=== PATIENT | male | born 2000 | race Caucasian/White ===

== ENCOUNTER 2020-12-09 15:31 | Outpatient (CLI) | payer BC, SELFPAY | END 2020-12-09 15:32 | disposition home or self-care (01) | LOC: ANHCOVIDVC 15:31 | PROVIDERS: PCP Pediatrics | DX: Z23 Encounter for immunization (principal) | CPT/HCPCS: 0001A; 91300 ==

== ENCOUNTER 2020-12-30 15:32 | Outpatient (CLI) | payer OTHER, BC, SELFPAY | END 2020-12-30 15:33 | disposition home or self-care (01) | LOC: ANHCOVIDVC 15:32 | PROVIDERS: PCP Pediatrics | DX: Z23 Encounter for immunization (principal) | CPT/HCPCS: 0002A; 91300 ==

== ENCOUNTER 2021-07-07 12:51 | Outpatient (CLI) | payer BC, SELFPAY ==
--- NOTE | ~2021-07-07 | US_ITS ---
EXAMINATION: US abdomen limited DATE: 07/07/2021 13:58 INDICATION: Abnormal serum enzymes TECHNIQUE: Multiple grayscale and Doppler ultrasound images of the abdomen were obtained. COMPARISON: None available FINDINGS: The head, body, and tail of the pancreas are normal. The liver is normal with normal echoge nicity and echotexture. No surface nodularity. Normal hepatopetal flow in the main portal vein. The g allbladder is normal with no abnormal wall thickening, pericholecystic fluid or stones. The normal co mmon bile duct measures 3 mm. There was no sonographic Mclean sign. IMPRESSION: 1. Normal sonographic study of the gallbladder. Reviewed, dictated and finalized at location A.
== END 2021-07-07 12:52 | disposition home or self-care (01) ==
PROVIDERS: PCP Physician Assistant; Visit Provider Physician Assistant
DX: R74.8 Abnormal levels of other serum enzymes (principal)
CPT/HCPCS: 76705

== ENCOUNTER 2023-09-14 08:44 | Emergency (ER) | payer OTHER, SELFPAY ==
--- NOTE | 2023-09-14 08:51 | ED.URI ---
HPI - URI/Sore Throat General Chief Complaint: Upper Respiratory Infection Stated Complaint: Cough/Fever/Chills Time Seen by Provider: 09/14/23 08:52 Source: patient Mode of arrival: ambulatory Limitations: no limitations History of Present Illness HPI Narrative: Rishi is a 23-year-old male patient presenting to the clinic today with complaints of fever, chills, nasal congestion, body aches, and cough x2 days. He reports his temperature is been as high as 102. No known exposure to anyone with COVID, flu, or strep. He denies any shortness of breath or chest pain. MD elicited complaint: fever, cough, nasal congestion and other (Chills, body aches) Related Data Allergies Allergy/AdvReac Type Severity Reaction Status Date / Time No Known Allergies Allergy Mild Verified 09/14/23 08:46 Review of Systems Review of Systems: Pertinent positives per HPI. Patient denies any rash, headache, visual changes, dizziness, shortness of breath, chest pain, palpitations, nausea, vomiting, diarrhea, constipation, abdominal pain, or any urinary issues. PMFSH Past Medical History Medical History Allergies Anxiety Asthma Family History Family History Father Asthma Diabetes mellitus Hypertension Depression Anxiety Heart disease Mother Breast cancer Anxiety Depression Sibling Hypertension Depression Anxiety Grandparent Breast cancer Bladder cancer Diabetes mellitus Hypertension Heart disease Grandparent Asthma Lung cancer Diabetes mellitus Hypertension Heart disease Cerebrovascular accident Social History Social History Smoking status: Never smoker Alcohol intake: unknown Substance use: unknown Current Housing: Decline to Answer Concerned About Future Housing: Decline to Answer Difficulty Paying Gas/Electric Bills: Decline to Answer Difficulty Paying for Meds: Decline to Answer Currently Unemployed: Decline to Answer Education: Decline to Answer Difficulty w/ Childcare or Family Care: Decline to Answer Comments At the time of my signature, I reviewed and agree with the nursing past medical, surgical, social, and family history. There is no relevant family history pertinent to the patient complaint. Exam Narrative: General: Well-developed, well nourished, in no apparent distress Head: Normocephalic, atraumatic Eyes: Pupils equally round and reactive to light bilaterally, EOM intact, sclera and conjunctive clear, no discharge, lids normal Ears: TMs intact and clear, ear canals clear, no drainage, grossly hearing normal. Nose: Nares patent, clear nasal discharge, no inflammation, no sinus tenderness. Mouth: Oral pharynx without lesions or masses, good dentition, MMM. Neck: Supple, trachea midline, no enlargement of anterior or posterior cervical nodes, no thyroid masses or goiter palpable. Cardio: Regular rate and rhythm, s1 and s2 normal, no murmur appreciated. Resp: Clear to auscultation bilaterally, no rhonchi, rales, wheezing or rubs Course Course Emergency Course: Portions of this record may have been created with voice recognition software. Level of Care: Express Care Visit Vital Signs Vital signs: Vital signs reviewed MDM - URI/Sore Throat MDM Narrative Medical decision making narrative: At the time of visit patient is resting comfortably on the exam table. Patient appears to be nontoxic. Influenza A testing was positive in the clinic today. COVID testing was negative. Supportive measures were discussed with the patient and they voiced understanding discharge instructions and agrees to treatment plan. Prescription for Tamiflu was sent to the pharmacy. Return precautions reviewed Differential Diagnosis Differential diagnosis: Likely upper respiratory infection, otitis media, si
[2023-09-14 08:58] VITALS: BP 134/88; PULSE 91; RESP 16; TEMP 37; O2SAT 98
== END 2023-09-14 09:15 | disposition home or self-care (01) ==
PROVIDERS: Emergency Provider Nurse Practitioner Family; PCP Physician Assistant
DX: J10.1 Influenza due to other identified influenza virus with other respiratory manifestations (principal); Z20.822 Contact with and (suspected) exposure to COVID-19; J45.909 Unspecified asthma, uncomplicated
CPT/HCPCS: 87426; 87804; 99213; C9803; G0463